=== PATIENT | female | born 1940 | race Caucasian/White ===

== ENCOUNTER → 2018-05-12 | Outpatient (CLI) | payer OTHER ==
[~2018-05-12] MED LIST: ALEVE220 MG PO; AMARYL4 MG PO; ATOXIMETIN-B1 CAP PO; BREO ELLIPTA 11 EACH INH; CARDIZEM CD360 MG PO; CEFUROXIME AXE250 MG PO; CIPRO250 MG PO; CIPRO500 MG PO; CLARITIN10 MG PO; COUMADIN0.5 MG PO; COUMADIN3 M1 PO; Coumadin2.5 MG PO; Coumadin3 MG PO; DIGOX125 MCG PO; DILTIAZEM 24HR120 MG PO; DILTIAZEM 24HR360 MG PO; DILTIAZEM CD120 MG PO; DILTIAZEM ER120 MG PO; DITROPAN5 MG PO; DOXYCYCLINE100 M2 PO; DOXYCYCLINE100 MG PO; DUONEB 3 MG/3 ML3 M1 INH; ELIQUIS2.5 M1 PO; EXELON1 EAC1 TD; EXELON13.3 MG/21 T; GABAPENTIN300 MG PO; GLUCAGON EMERGEN1 MG IJ; GLUCAGON1 MG IJ; JANTOVEN3 MG PO; JANTOVEN4 MG; JANUVIA50 MG PO; KEFLEX500 MG; KLOR-CON M2020 ME1 PO; LANOXIN0.125 MG PO; LANOXIN250 MCG PO; LASIX40 MG PO; LASIX80 MG PO; LISINOPRIL2.5 MG; LISINOPRIL5 MG PO; LOPRESSOR PO; LOPRESSOR50 MG PO; MACRODANTIN100 MG; MAPAP325 MG PO; MEGACE 40400 MG/10 PO; METHIMAZOLE5 MG PO; METOPROLOL SUCC50 M1 PO; MULTIVITAMIN FO1 CAP PO; NATURE'S BLEND F1 MG PO; NEURONTIN300 MG PO; NEURONTIN400 MG PO; NITROFURANTOIN100 M3 PO; NOVOLOG100 U/ML SC; OMEPRAZOLE D/R20 MG PO; OXYBUTYNIN5 MG PO; POTASSIUM20 MEQ PO; PRILOSEC2.5 MG PO; PRILOSEC20 MG PO; RIVASTIGMINE TAR6 M1 PO; SYMBICORT1 AE1 INH; TAPAZOLE5 MG PO; THE MEDICINE S400 IU PO; TYLENOL325 M1 PO; VENTOLIN 02.5 MG/3 M INH; VICODIN 5/500 505 MG PO; XOPENEX0.63 MG NEB; ZESTRIL5 MG PO; ZOLOFT25 MG PO
== END | disposition home or self-care (01) ==
LOC: US 16:00
DX: R60.0 Localized edema (principal)

== ENCOUNTER 2018-11-09 14:54 | Inpatient (IN) | payer OTHER ==
[~2018-11-09] VITALS: Ht 170.1 cm; Wt 63.7 kg
[~2018-11-09 14:54] MED LIST changes: +MACROBID100 M1 PO
[2018-11-09 14:59] VITALS: BP 101/56
[2018-11-09 15:12] LABS: HEMATOCRIT 34.4 % (37.0-47.0); HEMOGLOBIN 10.3 g/dl (12.0-16.0); MEAN CELL VOLUME 88.9 fl (81.0-99.0); MEAN CORPUSCULAR HGB 26.6 pg (27.0-31.0); MEAN CORPUSCULAR HGB CONC 29.9 g/dl (33.0-37.0); MEAN PLATELET VOLUME 10.5 fl (9.6-12.3); PLATELET COUNT AUTOMATED 325 10*3/uL (130-400); RED BLOOD COUNT 3.87 10*6/uL (4.10-5.10); RED CELL DISTRI WIDTH 15.7 % (0-14.5); WHITE BLOOD COUNT 16.9 10*3/uL (4.8-10.8)
[2018-11-09 15:23] LABS: ACT PARTIAL THROMBO TIME 32.5 SECONDS (20.0-32.1); INTERNATIONAL NORM RATIO 1.2 (2.0-3.5)
[2018-11-09 15:26] LABS: ALBUMIN 2.8 gm/dl (3.1-4.5); ALKALINE PHOSPHATASE 172 U/L (45-117); BUN 35 mg/dl (7-24); CHLORIDE 110 mmol/L (98-107); CREATININE 1.22 mg/dL (0.55-1.02); SGOT/AST 17 IU/L (3-35); SGPT/ALT 16 U/L (12-78); SODIUM 137 mmol/L (136-145); TOTAL PROTEIN 7.9 gm/dL (6.4-8.2)
[2018-11-09 15:29] LABS: TOTAL CELLS COUNTED 100 #CELLS
[2018-11-09 15:30] LABS: PLATELET SUFFICIENCY NORMAL (NORMAL)
[2018-11-09 15:32] LABS: POTASSIUM 6.2 mmol/L (3.5-5.1); TROPONIN I < 0.015 ng/ml (<0.045)
[2018-11-09 16:00] VITALS: BP 112/50
--- NOTE | 2018-11-09 16:21 | NUR ---
PHOTO TAKEN OF WOUND TO RECTAL AREA. ROSARIO WILLIS RN.
[2018-11-09 17:15] VITALS: BP 109/58
[2018-11-09 17:36] VITALS: BP 99/51
[2018-11-09 18:00] VITALS: BP 101/55
--- NOTE | 2018-11-09 18:00 | NUR ---
Time: 1799 A 78 year old FEMALE admitted to under services of DR. CARYL HOYT,PUMA Jaramillo Pt. arrived via ambulance from ER. Chief complaint: CHEST PAIN. ANTHONY MART
[2018-11-09] MEDS ORDERED: COLACE100 MG PO (19:04)
[2018-11-09] MEDS ORDERED: ATIVAN1 MG PO (19:05)
[2018-11-09] MEDS ORDERED: MORPHINE 110 MG/10 M IV (19:06)
--- NOTE | 2018-11-09 19:26 | NUR ---
DR. HUTSON NOTIFIED OF PT'S MED REC UTD.
--- NOTE | 2018-11-09 20:14 | NUR ---
DR. COLBY NOTIFIED OF NEW CONSULT. WOUND CARE ORDERS RCVD. WILL SEE PT IN AM.
--- NOTE | 2018-11-09 21:00 | NUR ---
WOUND MEASURED AT THIS TIME. 1.3 X 1.6 X 2.8 W/TUNNELLING AT NOON OF 3.8 AND UNDERMINING. SCANT DRAINAGE OF SS. WOUND BED RED. PERIWOUND MACERATED/WHITE. NO PAIN ASSOCIATED W/DRSG CHANGE. DRSG APPLIED ORDERED BY DR. COLBY.
--- NOTE | 2018-11-09 21:40 | NUR ---
PT MEDICATED W/ATIVAN D/T PT ANXIOUS. WILL MONITOR FOR EFFECTIVENESS.
[2018-11-09 22:36] LABS: BILIRUBIN 1+ (NEGATIVE); BLOOD 1+ (NEGATIVE); CLARITY SL CLOUDY (CLEAR); COLOR YELLOW (YELLOW); GLUCOSE NEGATIVE (NEGATIVE); KETONE TRACE (NEGATIVE); LEUKO ESTERASE 2+ (NEGATIVE); NITRITE POSITIVE (NEGATIVE); SPECIFIC GRAVITY 1.015 (1.005-1.030)
[2018-11-09 22:48] LABS: BACTERIA 1+; RBC 16-20 rbc/hpf (0-2); WBC TNTC wbc/hpf (0-5)
--- NOTE | 2018-11-09 23:30 | NUR ---
ASSUMED CARE OF PT AT THIS TIME. PT ASLEEP IN BED, EASILY AROUSABLE. PATIENT IS ALERT & ORIENTED, BUT SPEECH CAN BE HARD TO UNDERSTAND AT TIMES. DENTURES IN MOUTH AND PATIENT KEEPS CLICKING THEM WHEN SHE TALKS. RN OFFERED TO TAKE DENUTRES OUT FOR THE NIGHT & PT AGREES. PATIENT'S SPEECH CAN STILL BE MUMBLED & HARD TO UNDERSTAND AT TIMES, BUT PT ANSWERS APPROPRIATELY & FOLLOWS COMMANDS WHEN PROMPTED. PALE IN COLOR. PT DENIES ANY NEEDS AT THIS TIME & STATES SHE WANTS ONLY TO SLEEP. RN NOTICED PT APPEARED SOME MILD SHORTNESS OF BREATH. POX 91-92% ON ROOM AIR. PT DENIES NEED FOR O2 AT THIS TIME. STATES SHE JUST IS TIRED FROM ROLLING BACK & FORTH. WILL MONITOR. CALL LIGHT IN REACH.
[2018-11-10] VITALS: BP 119/61
--- NOTE | 2018-11-10 02:30 | NUR ---
POX NOW 95% ON ROOM AIR BUT APPEARS SOB. NOW AGREES TO WEAR O2 @ 2L NC FOR COMFORT. WILL MONITOR. DENIES ANY NEEDS AT THIS TIME. BED ALARM INTACT, CALL LIGHT IN REACH.
--- NOTE | 2018-11-10 04:45 | NUR ---
RN IN TO SEE PATIENT. PATIENT ASLEEP, BUT STILL APPEARS SOB, BUT POX IS 95% ON ROOM AIR. PATIENT IS DROWSY, BUT OPENS EYES, SMILES, AND MUMBLES WHEN PROMPTED. PT APPEARS PALE/ASHEN IN COLOR & STATES "I DON'T KNOW WHAT IS WRONG, I JUST AM TIRED & DON'T FEEL GOOD." RN OFFERED TO REPOSITION PT FOR COMFORT, BUT PT DOES NOT WANT @ THIS TIME. PATIENT WANTS TO HAVE NASAL CANNULA REAPPLIED FOR COMFORT, SHE SAYS SHE IS "A LITTLE SHORT OF BREATH." WILL MONITOR. BED LOCKED IN LOW POSITION, BED ALARM INTACT, CALL LIGHT IN REACH.
--- NOTE | 2018-11-10 05:32 | NUR ---
PATIENT ASLEEP IN BED. RESTING COMFORTABLY WITHOUT ANY COMPLAINTS. WILL MONITOR. CALL LIGHT IN REACH.
[2018-11-10 06:55] LABS: BASO # 0.1 10*3/uL (0.0-0.1); BASO % 0.4 % (0.0-1.0); EOS # 0.1 10*3/uL (0.0-0.4); EOS % 0.5 % (1.0-4.0); HEMATOCRIT 32.1 % (37.0-47.0); HEMOGLOBIN 9.7 g/dl (12.0-16.0); LYMPH # 0.7 10*3/uL (1.3-4.4); LYMPH % 4.8 % (27.0-41.0); MEAN CORPUSCULAR HGB 26.3 pg (27.0-31.0); MEAN CORPUSCULAR HGB CONC 30.2 g/dl (33.0-37.0); MEAN PLATELET VOLUME 10.3 fl (9.6-12.3); MONO # 1.1 10*3/uL (0.1-1.0); MONO % 7.1 % (3.0-9.0); NEUT # 12.8 10*3/uL (2.3-7.9); NEUT % 86.6 % (47.0-73.0); PLATELET COUNT AUTOMATED 307 10*3/uL (130-400); RED BLOOD COUNT 3.69 10*6/uL (4.10-5.10); RED CELL DISTRI WIDTH 15.8 % (0-14.5); WHITE BLOOD COUNT 14.8 10*3/uL (4.8-10.8)
[2018-11-10 07:01] LABS: CREATININE 1.25 mg/dL (0.55-1.02); POTASSIUM 5.5 mmol/L (3.5-5.1)
--- NOTE | 2018-11-10 07:45 | NUR ---
Patient resting quietly with no c/o discomfort. Respirations easy and regular. Vital signs stable. No overt distress. FIDENCIO CRABTREE
[2018-11-10 08:00] VITALS: BP 118/86
--- NOTE | 2018-11-10 09:00 | NUR ---
Road Inspector in to see patient. She is not able to answer all questions appropriately. When asked if she lives alone she said no. When asked if she lives with her daughter she said yes. When asked how she gets around her speech was incomprehensible. Asked if CM could speak to her daughter and she stated yes. Discharge plan undecided at this time.
--- NOTE | 2018-11-10 09:56 | NUR ---
IN TO SEE PATIENT.
--- NOTE | 2018-11-10 10:47 | NUR ---
Received order from Dr. Pereira to consult [facility] hospice per his and the daughter's phone conversation. New order placed.
--- NOTE | 2018-11-10 10:57 | NUR ---
Spoke to daughter, Hafsa, at [phone] regarding hospice care at home. She states she has previously talked to Katelin, the medical management trainer of [facility], when her mother was at the correction. Hafsa is agreeable to have [facility] hospice at home for her mother.
--- NOTE | 2018-11-10 11:08 | NUR ---
She currently has [facility] per Dr. Pereira. Those services will resume upon discharge.
--- NOTE | 2018-11-10 11:16 | NUR ---
GAOGAVIN MCCARTHY [id number] Please refer to the physician's history and physical for past medical history, comorbid conditions, and allergies. 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 PATIENT UNSURE HOW THIS HAPPENED. Surface the patient is resting on: Isoflex SKIN PREVENTION RECOMMENDATION: 1. Pressure redistribution support surface as appropriate 2. Elevate heels 3. Remove boots/TEDS every shift and reapply 4. Head of bed 30 degrees as tolerated 5. Assess nutrition and hydration 6. Manage moisture 7. Avoid the use of containment devices while in bed 8. Use absorptive products on surfaces limit layers of linens on bed 9. Turn and reposition every 1-2 hours in bed and every 1 hour in chair as tolerated 10. Weight shifts every 15 minutes while up in chair 11. Offloading with pillows or device to keep heels elevated off bed 12. Monitor skin at least every shift 13. Inspect under medical devices twice a day WOUND TREATMENT RECOMMENDATIONS: CONTINUE CURRENT ORDERS FROM DR. COLBY. WHEEL CHAIR CUSHION WHEN OUT OF BED.
--- NOTE | 2018-11-10 11:36 | NUR ---
EXPEDITER SERVICE ORDER new faxed referral to [facility]. -DON Hinson
[2018-11-10 12:00] VITALS: BP 111/84
--- NOTE | 2018-11-10 13:49 | NUR ---
DAUGHTER AT BEDSIDE ASSISTING WITH MEAL.
--- NOTE | 2018-11-10 14:51 | NUR ---
PHYSICAL THERAPY Physical therapy evaluation attempted. Patient lethargic at this time. Nursing confirms that patient has been very tired today. Will try PT evaluation at a later date. Thank you. Shira Lucas,PT,DPT.
--- NOTE | 2018-11-10 15:58 | NUR ---
Nursing screen received and chart reviewed. Patient admitted from home with poor healig stage IV sacral decubitus, left chest pain and UTI.Patient may benefit from OT if returning home to determine d/c needs. Thank you. Sarah Montejo OTR/L
[2018-11-10 16:00] VITALS: BP 125/63
--- NOTE | 2018-11-10 18:41 | NUR ---
HOSPICE NURSE IN TO SEE PATIENT.
--- NOTE | 2018-11-10 19:22 | NUR ---
24 HR CHART CHECK COMPLETE.
[2018-11-10 20:00] VITALS: BP 128/63
[2018-11-11] VITALS: BP 127/71
[2018-11-11 06:41] LABS: CREATININE 1.11 mg/dL (0.55-1.02); POTASSIUM 4.6 mmol/L (3.5-5.1)
--- NOTE | 2018-11-11 07:10 | NUR ---
Report received from Ilir underwood. States that pt had bm with dressing soiled to wound and they had changed dressing this AM.
[2018-11-11 08:00] VITALS: BP 133/64
--- NOTE | 2018-11-11 09:34 | NUR ---
Tylenol given per prn order for complaints of headache and stomach ache.
--- NOTE | 2018-11-11 10:30 | NUR ---
Discussed discharge planning with Dr. Pereira. He states patient can be discharged today or tomorrow depending on when [facility] hospice will have her equipment and home ready. flour worker following.
[2018-11-11] MEDS ORDERED: MORPHINE S100 MG/5 M PO (10:32)
[2018-11-11] MEDS ORDERED: AUGMENTIN 875-875 MG PO (10:32)
[2018-11-11] MEDS ORDERED: ATIVAN ORAL C2 MG/ML PO (10:34)
--- NOTE | 2018-11-11 10:51 | NUR ---
STOCKHOLDER attempted to confirm with [facility] that what the patient needs will be available to her upon her discharge. STOCKHOLDER attempted several phone calls with no response. STOCKHOLDER [facility]. -DON Hinson
--- NOTE | 2018-11-11 11:05 | NUR ---
Spoke with daughter Hafsa notified her that Dr. Pereira placed order for DC, notified I was awaiting call from Shira is case management to let us know if OK for dc today. Notified of policy for taking photos of wounds at admission and dc. Notified that wound dressing was already changed this am. Daughter states it was not necessary to take photos, states she has seen the wound 100 times. Notified her that I would call as soon as I knew if ok for dc today.
--- NOTE | 2018-11-11 11:12 | NUR ---
Spoke with Shira, she states that they are waiting to hear back from hospice company if ok for dc today.
--- NOTE | 2018-11-11 11:46 | NUR ---
INSPECTOR AND HAND PACKAGER reached out to [facility] again, no answer, left messages at all numbers. -DON Hinson
--- NOTE | 2018-11-11 11:55 | NUR ---
EVS MANAGER [facility] EVS MANAGER faxed clinicals to [facility]. [facility] stated they would admit the patient once she is home. -DON Hinson
[2018-11-11 12:00] VITALS: BP 140/74
--- NOTE | 2018-11-11 12:04 | NUR ---
CHRISTMAS TREE FARMER spoke with Evelio who stated any time would be fine for the patient to be discharge. CHRISTMAS TREE FARMER spoke with patients daughter Hafsa who stated 1:30pm today would be fine for her to transport the patient back home. CHRISTMAS TREE FARMER notified work non food receiving clerk and will let Evelio know when she returns from her lunch. -DON Hinson
--- NOTE | 2018-11-11 12:08 | NUR ---
Faxed resumption home health order to [facility]
--- NOTE | 2018-11-11 14:05 | NUR ---
Discharge instructions reviewed with patient/family. Patient receptive and verbalizes understanding. Follow-up care arranged. Written instructions given to daughter. Scripts for morphine and ativan given to daughter and instructed to give to hospice. BRO CAMPOS
--- NOTE | 2018-11-11 14:09 | NUR ---
Discharged in care of daughter via ambulance by private car. Daughter had declined wheelchair.
== END 2018-11-11 14:09 | disposition hospice, home (50) | DRG 640 ==
LOC: ED 14:54 → 4E 17:38
PROVIDERS: Emergency Medicine; Nurse Practitioner Family; ADMIT Internal Medicine
DX: E87.5 Hyperkalemia (principal); L89.154 Pressure ulcer of sacral region, stage 4; N39.0 Urinary tract infection, site not specified; E44.0 Moderate protein-calorie malnutrition; C80.0 Disseminated malignant neoplasm, unspecified; I50.22 Chronic systolic (congestive) heart failure; C16.9 Malignant neoplasm of stomach, unspecified; Z66 Do not resuscitate; Z51.5 Encounter for palliative care; R32 Unspecified urinary incontinence; R62.7 Adult failure to thrive; K21.0 Gastro-esophageal reflux disease with esophagitis; B96.20 Unspecified Escherichia coli [E. coli] as the cause of diseases classified elsewhere; E11.9 Type 2 diabetes mellitus without complications; I48.2 Chronic atrial fibrillation; I11.0 Hypertensive heart disease with heart failure; Z98.1 Arthrodesis status; Z91.81 History of falling; Z87.440 Personal history of urinary (tract) infections; Z87.01 Personal history of pneumonia (recurrent); Z90.49 Acquired absence of other specified parts of digestive tract; Z90.710 Acquired absence of both cervix and uterus; Z82.49 Family history of ischemic heart disease and other diseases of the circulatory system; Z68.22 Body mass index [BMI] 22.0-22.9, adult